=== PATIENT | female | born 1945 | race Two or more races ===

== ENCOUNTER 2023-11-22 17:54 | Inpatient (IN) | payer OTHER ==
[~2023-11-22] VITALS: Ht 162.6 cm; Wt 75.3 kg
[2023-11-23] VITALS (10 sets, daily range): BP systolic 142–182; BP diastolic 71–91; PULSE 75–98; RESP 16–69; TEMP 97.2–98.5; O2SAT 17–98
[2023-11-23] MEDS ORDERED: ONDANSETRON HCL 4 MG/2 ML VIAL IV PRN (00:45)
[2023-11-23] MEDS ORDERED: LOSA-535 PO (00:50)
[2023-11-23] MEDS ORDERED: METO-289 PO (00:51)
[2023-11-23] MEDS ORDERED: METO10TA3 PO (00:51)
[2023-11-23] MEDS: SODIUM CHLORIDE 0.9% 1,000 ML IV SCH (02:28)
[2023-11-23] MEDS: PANTOPRAZOLE 40 MG/10 ML VIAL INJ IV SCH (09:59)
[2023-11-23] MEDS: ENOXAPARIN SOD 40 MG/0.4 ML SYRINGE SC SCH (10:00)
[2023-11-23] MEDS: HYDROcodone-ACET 5/325MG TAB PO PRN (10:06)
[2023-11-23 13:06] LABS: Basophils # (auto) 0 10 ^3/uL (0-0.2); Eosinophils # (auto) 0.1 10 ^3/uL (0-0.8); White Blood Cell 6.5 10^3/uL (4.4-10.8)
[2023-11-23 13:07] LABS: Basophils % (auto) 0.6 % (0.0-2.0); Eosinophils % (auto) 1.2 % (0.0-7.0); Hematocrit 30.2 % (36.0-46.0); Hemoglobin 9.9 g/dL (12.2-16.2); Lymphocytes # (auto) 1.3 10 ^3/uL (0.4-5.4); Lymphocytes % (auto) 19.6 % (10.0-50.0); Mean Corpuscular Hemoglobin 28.2 pg (28.0-32.0); Mean Corpuscular Hgb Conc. 32.9 g/dL (32.0-36.0); Mean Corpuscular Volume 85.5 fL (80.0-100.0); Monocytes # (auto) 0.5 10 ^3/uL (0-1.3); Monocytes % (auto) 7.7 % (0.0-12.0); Neutrophils # (auto) 4.6 10 ^3/uL (1.6-8.6); Neutrophils % (auto) 70.9 % (37.0-80.0); Red Blood Cells 3.53 10^6/uL (4.0-5.20); Red Cell Distribution Width 15.3 % (11.8-14.3)
[2023-11-23 13:23] LABS: Chloride 98 mmol/L (98-107); Potassium 4.4 mmol/L (3.5-5.1); Sodium 128 mmol/L (136-145)
[2023-11-23 13:24] LABS: Anion Gap 4 (5-15); Carbon Dioxide 26 mmol/L (20-30)
[2023-11-23 13:25] LABS: Calcium 9.2 mg/dL (8.7-10.4)
[2023-11-23 13:30] LABS: BUN/Creatinine Ratio 27.3 (10.0-20.0); Blood Urea Nitrogen 18 mg/dL (9-23); Glucose 114 mg/dL (74-106)
[2023-11-23] MEDS ORDERED: GABAPENTIN 100 MG CAP PO SCH (14:00)
[2023-11-23] MEDS: METOPROLOL SUCCINATE XL 50 MG TAB PO ONE (14:24)
[2023-11-23] MEDS: LOSARTAN POTASSIUM 50 MG TAB PO ONE (14:26)
[2023-11-23] MEDS: ACETAMINOPHEN 325 MG TAB PO PRN (21:25)
[2023-11-23] MEDS: hydrALAZINE HCL 20 MG/ML VL IV PRN (21:26)
[2023-11-24] MEDS: POLYETHYLENE GLYCOL 17 GM PWDR PO ONE (01:25)
[2023-11-24 05:00] VITALS: BP 162/88; PULSE 88; RESP 18; TEMP 98.1; O2SAT 92
[2023-11-24 06:26] LABS: Basophils # (auto) 0.1 10 ^3/uL (0-0.2); Basophils % (auto) 0.8 % (0.0-2.0); Eosinophils # (auto) 0.1 10 ^3/uL (0-0.8); Red Blood Cells 3.78 10^6/uL (4.0-5.20)
[2023-11-24 06:34] LABS: Eosinophils % (auto) 1.9 % (0.0-7.0); Hematocrit 32.2 % (36.0-46.0); Hemoglobin 10.6 g/dL (12.2-16.2); Lymphocytes # (auto) 1.9 10 ^3/uL (0.4-5.4); Mean Corpuscular Hemoglobin 28.2 pg (28.0-32.0); Mean Corpuscular Hgb Conc. 33.1 g/dL (32.0-36.0); Mean Corpuscular Volume 85.2 fL (80.0-100.0); Monocytes # (auto) 0.5 10 ^3/uL (0-1.3); Monocytes % (auto) 8.2 % (0.0-12.0); Neutrophils # (auto) 3.9 10 ^3/uL (1.6-8.6); Neutrophils % (auto) 60.1 % (37.0-80.0); Red Cell Distribution Width 14.8 % (11.8-14.3); White Blood Cell 6.5 10^3/uL (4.4-10.8)
[2023-11-24 06:43] LABS: Urine Bacteria None Seen /hpf (None Seen)
[2023-11-24 06:48] LABS: Alanine Aminotransferase 22 U/L (7-40); Albumin 4.5 g/dL (3.2-4.8); Alkaline Phosphatase 59 U/L (46-116); Anion Gap 8 (5-15); Aspartate Aminotransferase 27 U/L (13-40); BUN/Creatinine Ratio 15.4 (10.0-20.0); Bilirubin, Total 0.4 mg/dL (0.2-1.0); Blood Urea Nitrogen 10 mg/dL (9-23); Calcium 10.2 mg/dL (8.5-10.1); Carbon Dioxide 23 mmol/L (20-30); Chloride 95 mmol/L (98-107); Glucose 107 mg/dL (74-106); Potassium 3.7 mmol/L (3.5-5.1); Sodium 126 mmol/L (136-145); Total Protein 7.6 g/dL (5.7-8.2)
[2023-11-24 07:06] LABS: Urine Blood TRACE /uL (Negative); Urine Clarity Clear (Clear); Urine Protein, UAD Negative (Negative); Urine Specific Gravity 1.006 (1.001-1.035); Urine Urobilinogen Normal (Negative); Urine WBC 2 /hpf (0 - 5); Urine pH 7.5 (5.0-9.0)
[2023-11-24 07:10] LABS: Urine Color Straw (Yellow)
[2023-11-24 09:00] VITALS: BP 142/71; PULSE 89; RESP 17; TEMP 98.5; O2SAT 97
[2023-11-24] MEDS: METOPROLOL SUCCINATE XL 50 MG TAB PO SCH (09:51)
[2023-11-24] MEDS: LOSARTAN POTASSIUM 50 MG TAB PO SCH (09:51)
[2023-11-24 13:00] VITALS: BP 155/75; PULSE 86; RESP 16; TEMP 98.1; O2SAT 96
[2023-11-24 17:00] VITALS: BP 144/71; PULSE 76; RESP 18; TEMP 98.4; O2SAT 98
[2023-11-24 20:00] VITALS: RESP 16; O2SAT 99
[2023-11-24 21:00] VITALS: BP 133/64; PULSE 80; RESP 17; TEMP 97.8; O2SAT 96
[2023-11-25 05:00] VITALS: BP 136/67; PULSE 79; RESP 18; TEMP 98.2; O2SAT 92
[2023-11-25 06:40] LABS: Basophils # (auto) 0 10 ^3/uL (0-0.2); Eosinophils # (auto) 0.1 10 ^3/uL (0-0.8); Lymphocytes # (auto) 1.2 10 ^3/uL (0.4-5.4); Monocytes # (auto) 0.6 10 ^3/uL (0-1.3)
[2023-11-25 06:42] LABS: Basophils % (auto) 0.8 % (0.0-2.0); Eosinophils % (auto) 2.4 % (0.0-7.0); Hematocrit 30.1 % (36.0-46.0); Hemoglobin 10.2 g/dL (12.2-16.2); Lymphocytes % (auto) 24.4 % (10.0-50.0); Mean Corpuscular Hemoglobin 28.6 pg (28.0-32.0); Mean Corpuscular Hgb Conc. 33.8 g/dL (32.0-36.0); Mean Corpuscular Volume 84.5 fL (80.0-100.0); Monocytes % (auto) 12.2 % (0.0-12.0); Neutrophils % (auto) 60.2 % (37.0-80.0); Red Blood Cells 3.56 10^6/uL (4.0-5.20); Red Cell Distribution Width 14.9 % (11.8-14.3); White Blood Cell 4.9 10^3/uL (4.4-10.8)
[2023-11-25 06:48] LABS: Anion Gap 6 (5-15); Carbon Dioxide 25 mmol/L (20-30); Chloride 97 mmol/L (98-107); Potassium 3.8 mmol/L (3.5-5.1); Sodium 128 mmol/L (136-145)
[2023-11-25 06:50] LABS: Calcium 9.9 mg/dL (8.5-10.1)
[2023-11-25 06:54] LABS: Glucose 102 mg/dL (74-106)
[2023-11-25 06:55] LABS: BUN/Creatinine Ratio 17.8 (10.0-20.0); Blood Urea Nitrogen 13 mg/dL (9-23)
[2023-11-25 09:00] VITALS: BP 114/67; PULSE 75; RESP 18; TEMP 97.8; O2SAT 96
[2023-11-25 13:00] VITALS: BP 147/72; PULSE 95; RESP 19; TEMP 98.2; O2SAT 99
== END 2023-11-25 12:20 | disposition left against medical advice (07) | DRG 392 ==
LOC: TELE-CENTR 11-23 00:51 → UNDOADMIN 11-23 00:52 → TELE-CENTR 11-23 00:52 → CENTRAL 11-23 06:40
PROVIDERS: ADMIT Hospitalist; ATTEND Hospitalist
DX: K52.9 Noninfective gastroenteritis and colitis, unspecified (principal); E87.1 Hypo-osmolality and hyponatremia; E78.5 Hyperlipidemia, unspecified; E86.0 Dehydration; D64.9 Anemia, unspecified; Z53.29 Procedure and treatment not carried out because of patient's decision for other reasons; I10 Essential (primary) hypertension; Z98.84 Bariatric surgery status; Z79.899 Other long term (current) drug therapy; Z90.49 Acquired absence of other specified parts of digestive tract; Z87.891 Personal history of nicotine dependence
CPT/HCPCS: 36415; 80048; 80053; 81001; 85025; 97163; 99291; C9113; G0378